=== PATIENT | male | born 1990 | race Caucasian/White ===

== ENCOUNTER 2016-11-16 12:10 | Emergency (ER) | payer OTHER ==
[2016-11-16 12:32] VITALS: BP 124/81
--- NOTE | 2016-11-16 12:49 | UC ---
Throat Pain/Nasal Luis HPI - HPI Summary HPI Summary: complaint of nasal congestion that started 2 days ago productive cough mild sore throat that started today denies headaches, ear pain denies N/V/D took some dayquil on the first day with some relief - History of Current Complaint Chief Complaint: UCRespiratory Stated Complaint: COLD SYMPTOMS Time Seen by Provider: 11/16/16 12:43 Hx Obtained From: Patient - Allergies/Home Medications Allergies/Adverse Reactions: Allergies Allergy/AdvReac Type Severity Reaction Status Date / Time No Known Allergies Allergy Verified 11/16/16 12:31 PMH/Surg Hx/FS Hx/Imm Hx Previously Healthy: Yes - Surgical History Surgical History: None - Family History Known Family History: Positive: Hypertension - MOTHER AND FATHER Negative: Cardiac Disease, Diabetes - Social History Occupation: Employed Full-time Lives: With Family Alcohol Use: Weekly Substance Use Type: None Smoking Status (MU): Former Smoker Type: Cigarettes Length of Time of Smoking/Using Tobacco: 2 yrs When Did the Patient Quit Smoking/Using Tobacco: 2011 - Immunization History Most Recent Influenza Vaccination: last season. Review of Systems Constitutional: Negative Skin: Negative Eyes: Negative ENT: Nasal Discharge Respiratory: Cough Cardiovascular: Negative Gastrointestinal: Negative Genitourinary: Negative Motor: Negative Neurovascular: Negative Musculoskeletal: Negative Neurological: Negative Psychological: Negative All Other Systems Reviewed And Are Negative: Yes Physical Exam Triage Information Reviewed: Yes Appearance: No Pain Distress, Well-Nourished Vital Signs: Initial Vital Signs Temp 98.5 F 11/16/16 12:28 Pulse 75 11/16/16 12:28 Resp 14 11/16/16 12:28 BP 124/81 11/16/16 12:28 Pulse Ox 99 11/16/16 12:28 Vital Signs Reviewed: Yes Eyes: Positive: Conjunctiva Clear ENT: Positive: Pharyngeal erythema, Nasal congestion, Nasal drainage, TMs normal. Negative: Tonsillar swelling, Tonsillar exudate Neck: Positive: No Lymphadenopathy Respiratory: Positive: Lungs clear, Normal breath sounds, No respiratory distress, No accessory muscle use Cardiovascular: Positive: RRR, No Murmur, Pulses Normal Abdomen Description: Positive: Nontender, Soft Bowel Sounds: Positive: Present Musculoskeletal: Positive: No Edema Neurological: Positive: Alert Psychological Exam: Normal Skin Exam: Normal Throat Pain/Nasal Course/Dx - Differential Dx/Diagnosis Differential Diagnosis/HQI/PQRI: Pharyngitis, URI Provider Diagnoses: URI Discharge - Discharge Plan Condition: Stable Disposition: HOME Prescriptions: Oxymetazoline 0.05% NASAL SPR* [Afrin 0.05% NASAL SPRAY*] 1 spray NASAL Q12H #1 btl Patient Education Materials: Upper Respiratory Infection (ED) Forms: *Work Release Referrals: Nate Kumar MD [Primary Care Provider] - Additional Instructions: Increase fluids and rest Take acetaminophen or ibuprofen for fever or pain Please review your discharge instructions. If your symptoms do not improve please call your primary care provider or return to urgent care
== END 2016-11-16 13:02 | disposition home or self-care (01) ==
LOC: UCCORT 12:10
DX: J06.9 Acute upper respiratory infection, unspecified (principal); Z87.891 Personal history of nicotine dependence
CPT/HCPCS: 99212; G0463

== ENCOUNTER 2018-01-22 08:29 | Emergency (ER) | payer BC, OTHER ==
[2018-01-22 08:48] VITALS: BP 126/81
--- NOTE | 2018-01-22 08:49 | UC ---
Throat Pain/Nasal Luis HPI - HPI Summary HPI Summary: 27-year-old otherwise healthy male presents with sore throat that began this morning. He states that he had headache last evening. Today he also had fever to 100.1. He also reports an anal fissure with bright red blood with bowel movement this morning. He states he has a history of these that are associated with constipation. He also reports some constipation. He has no abdominal pain , oral ulcerations. There is no personal or family history for ulcerative colitis or Crohn's disease. - History of Current Complaint Stated Complaint: SORE THROAT Time Seen by Provider: 01/22/18 08:41 Hx Obtained From: Patient - Allergies/Home Medications Allergies/Adverse Reactions: Allergies Allergy/AdvReac Type Severity Reaction Status Date / Time No Known Allergies Allergy Verified 01/22/18 08:47 PMH/Surg Hx/FS Hx/Imm Hx GI/ History: Other Other GI/ History: anal fissures. Denies Crohn's disease or colitis - Surgical History Surgical History: None - Family History Known Family History: Positive: Hypertension - MOTHER AND FATHER Negative: Cardiac Disease, Diabetes - Social History Occupation: Employed Full-time - Works in the long term Alcohol Use: Weekly Substance Use Type: None Smoking Status (MU): Former Smoker Type: Cigarettes Length of Time of Smoking/Using Tobacco: 2 yrs When Did the Patient Quit Smoking/Using Tobacco: 2011 - Immunization History Most Recent Influenza Vaccination: last season. Review of Systems Constitutional: Fever Skin: Negative ENT: Sore Throat, Other - Denies ear pain, sinus congestion or sinus discomfort Respiratory: Negative Cardiovascular: Negative Gastrointestinal: Other - Anal fissure All Other Systems Reviewed And Are Negative: Yes Physical Exam Triage Information Reviewed: Yes Appearance: Well-Appearing, No Pain Distress Vital Signs Reviewed: Yes Eye Exam: Normal Eyes: Positive: Conjunctiva Clear ENT: Positive: Pharyngeal erythema, TMs normal, Tonsillar exudate. Negative: Nasal drainage, Tonsillar swelling Neck exam: Normal Neck: Positive: Nontender, No Lymphadenopathy. Negative: Nuchal Rigidity Respiratory: Positive: Lungs clear Cardiovascular: Positive: RRR Abdomen Description: Positive: Nontender, No Organomegaly Male Genital Exam: Positive: Other - No active rectal bleeding. Normal tone. No hemorrhoids. No discernible fissure at this point. Musculoskeletal Exam: Normal Neurological Exam: Normal Neurological: Positive: Alert, Muscle Tone Normal Skin Exam: Normal Throat Pain/Nasal Course/Dx - Course Course Of Treatment: Rapid strep is negative. Pharyngeal erythema and exudate. Likely viral. Also we'll treat presumptively has anal fissure. Add steroids and Anusol suppository. - Differential Dx/Diagnosis Differential Diagnosis/HQI/PQRI: Other - Strep tonsillitis, viral pharyngitis/ tonsillitis; ulcerative colitis/Crohn's, anal fissure Provider Diagnoses: Acute pharyngitis. Acute anal fissure Discharge - Sign-Out/Discharge Documenting (check all that apply): Patient Departure - Discharge Plan Condition: Improved Disposition: HOME Prescriptions: Dexamethasone TAB* [Decadron TAB*] 8 mg PO DAILY #4 tab Hydrocortisone SUPP* [Anusol HC Supp*] 25 mg [place] BID #6 supp Patient Education Materials: Pharyngitis (ED), Anal Fissure (ED) Forms: *Work Release Referrals: Nate Kumar MD [Primary Care Provider] - Additional Instructions: Drink plenty of fluids. Tylenol, ibuprofen as needed for fever. Mixed MiraLAX interior diet whenever you feel constipated. This is [id number]. Return with unable to keep down fluids, high fevers, worsening, new symptoms or other concerns. Call your doctor today to schedule follow-up. - Billing Disposition and Condition Condition: IMPROVED Disposition: Home
[2018-01-22] MEDS ORDERED: Ibuprofen ADULT LIQ* 600 MG/30 ML UDC PO ONE (08:59)
[2018-01-22] MEDS ORDERED: Ibuprofen PED LIQ 100 MG/5 ML UDC PO ONE (08:59)
== END 2018-01-22 09:14 | disposition home or self-care (01) ==
LOC: UCCORT 08:29
DX: J02.9 Acute pharyngitis, unspecified (principal); K60.0 Acute anal fissure; Z87.891 Personal history of nicotine dependence
CPT/HCPCS: 87651; 99212; G0463

== ENCOUNTER 2018-03-22 10:12 | Emergency (ER) | payer BC ==
[2018-03-22 10:28] VITALS: BP 118/75
--- NOTE | 2018-03-22 10:50 | UC ---
Abdominal Pain Male HPI - HPI Summary HPI Summary: 27 year old male with GI comlpaint. "I've got some nausea and diarrhea." Fever ( tmax 101 two days ago), nausea without vomiting, "feels like everything is kind of gassy. I'm hungry, but I haven't been able to eat in two days.", and four to five episodes of diarrhea daily for two days. Has been able to tolerate water and alta abilio. No close contacts with similar symptoms. No recent antibiotics or travel. [ End ] - History of Current Complaint Chief Complaint: UCGI Stated Complaint: NAUSEA, DIARRHEA Time Seen by Provider: 03/22/18 10:47 Hx Obtained From: Patient Onset/Duration: Gradual Onset Timing: Constant Pain Intensity: 0 Aggravating Factor(s): Food Alleviating Factor(s): Nothing Associated Signs And Symptoms: Positive: Diarrhea. Negative: Blood in Stool - Allergies/Home Medications Allergies/Adverse Reactions: Allergies Allergy/AdvReac Type Severity Reaction Status Date / Time No Known Allergies Allergy Verified 03/22/18 10:23 Home Medications: Home Medications Bismuth Subsalicylate [Pepto-Bismol Max Strength] 30 ml PO Q6H PRN 03/22/18 [ History Confirmed 03/22/18] Calcium Carbonate CHEW TAB* [Tums*] 1,000 mg PO Q4H PRN 03/22/18 [History Confirmed 03/22/18] Ibuprofen TAB* [Advil TAB*] 400 - 600 mg PO Q6H PRN 03/22/18 [History Confirmed 03/22/18] PMH/Surg Hx/FS Hx/Imm Hx Previously Healthy: Yes - Surgical History Surgical History: None - Family History Known Family History: Positive: Hypertension - MOTHER AND FATHER Negative: Cardiac Disease, Diabetes - Social History Occupation: Employed Full-time - [place] Alcohol Use: Weekly Substance Use Type: None Smoking Status (MU): Former Smoker Type: Cigarettes Length of Time of Smoking/Using Tobacco: 2 yrs When Did the Patient Quit Smoking/Using Tobacco: 2011 - Immunization History Most Recent Influenza Vaccination: last season. Review of Systems Constitutional: Fatigue Gastrointestinal: Diarrhea, Nausea Is Patient Immunocompromised?: No All Other Systems Reviewed And Are Negative: Yes Physical Exam Triage Information Reviewed: Yes Appearance: Well-Appearing, No Pain Distress, Well-Nourished Vital Signs: Initial Vital Signs Temp 98.3 F 10/13/18 10:21 Pulse 70 03/22/18 10:21 Resp 16 03/22/18 10:21 BP 118/75 03/22/18 10:21 Pulse Ox 99 03/22/18 10:21 Vital Signs Reviewed: Yes Eye Exam: Normal ENT Exam: Normal Dental Exam: Normal Neck exam: Normal Neck: Positive: 1 Respiratory Exam: Normal Cardiovascular Exam: Normal Abdominal Exam: Normal Abdomen Description: Positive: Nontender, Soft. Negative: No Organomegaly, Bruit, CVA Tenderness (R), CVA Tenderness (L), Distended, Guarding, Peritoneal Signs Musculoskeletal Exam: Normal Neurological Exam: Normal Psychological Exam: Normal Skin Exam: Normal Abd Pain Male Course/Dx - Course Course Of Treatment: Symptoms at this time indicate gastroenteritis. No obvious indication of diverticulitis and patient does not describe significant left lower quadrant abdominal pain. We did discuss the signs and symptoms of diverticulitis and if he develops these to seek medical attention. - Differential Dx/Clinical Impression Provider Diagnoses: gastroenteritis Discharge - Sign-Out/Discharge Documenting (check all that apply): Patient Departure All imaging exams completed and their final reports reviewed: No Studies - Discharge Plan Condition: Good Disposition: HOME Prescriptions: Ondansetron [Zofran Odt] 4 mg PO Q6HR PRN #15 tab.rapdis PRN Reason: Nausea Patient Education Materials: Gastroenteritis (ED) Forms: *Work Release Referrals: Nate Kumar MD [Primary Care Provider] - 4 Days - Billing Disposition and Condition Condition: GOOD Disposition: Home
== END 2018-03-22 11:16 | disposition home or self-care (01) ==
LOC: UCCORT 10:12
DX: K52.9 Noninfective gastroenteritis and colitis, unspecified (principal)
CPT/HCPCS: 99212; G0463

== ENCOUNTER 2018-10-27 10:18 | Emergency (ER) | payer BC ==
[2018-10-27 10:37] VITALS: BP 118/70
[2018-10-27] MEDS ORDERED: Tetan/Diph/Pertus SYR(Tdap)* 0.5 ML SYR(BOOSTRIX) use SYR IM ONE (11:00)
--- NOTE | 2018-10-27 11:00 | UC ---
General HPI - HPI Summary HPI Summary: around 9am, pt stepped on a small finishing nail inside his home. it went through his L slip on shoe and poked him in the foot. he immediately cleaned the site. he comes in for a tetanus shot. he denies any FB sensation and the nail remained whole when it came out. - History of Current Complaint Chief Complaint: UCLowerExtremity Stated Complaint: LT FOOT INJURY-STEPPED ON NAIL Time Seen by Provider: 10/27/18 10:54 Hx Obtained From: Patient Onset/Duration: Sudden Onset Pain Intensity: 0 Associated Signs & Symptoms: Negative: Edema, Fever - Allergy/Home Medications Allergies/Adverse Reactions: Allergies Allergy/AdvReac Type Severity Reaction Status Date / Time No Known Allergies Allergy Verified 10/27/18 10:34 PMH/Surg Hx/FS Hx/Imm Hx Previously Healthy: Yes - Surgical History Surgical History: None - Family History Known Family History: Positive: Hypertension - MOTHER AND FATHER Negative: Cardiac Disease, Diabetes - Social History Alcohol Use: Occasionally Substance Use Type: None Smoking Status (MU): Former Smoker Type: Cigarettes Length of Time of Smoking/Using Tobacco: 2 yrs When Did the Patient Quit Smoking/Using Tobacco: 2011 - Immunization History Most Recent Influenza Vaccination: last season. Hx Tetanus, Diphtheria Vaccination: No Review of Systems All Other Systems Reviewed And Are Negative: No Constitutional: Negative: Fever Skin: Negative: Rash Musculoskeletal: Negative: Arthralgia, Edema Physical Exam Triage Information Reviewed: Yes Appearance: Well-Appearing Vital Signs: Initial Vital Signs Temp 98.0 F 10/27/18 10:34 Pulse 62 10/27/18 10:34 Resp 14 10/27/18 10:34 BP 118/70 10/27/18 10:34 Pulse Ox 99 10/27/18 10:34 Vital Signs Reviewed: Yes Respiratory: Positive: No respiratory distress Cardiovascular: Positive: RRR Musculoskeletal: Positive: Other: - L foot: tiny pink spot from PW on lateral side of plantar foot. no erythema, swelling or tenderness. Pt denies FB sensation with palpations. foot has full s/v/m function. Neurological: Positive: Alert Psychological: Positive: Age Appropriate Behavior Skin Exam: Normal Skin: Negative: Rashes Course/Dx - Differential Dx - Multi-Symptom Differential Diagnoses: Other - Tiny PW L foot. No s/s's of infection or FB. Will cover with Keflex to prevent infection. Pt advised if develops an infection on keflex will need recheck immediately and probable cipro to cover pseudomonas - Diagnoses Provider Diagnosis: Puncture wound of foot, left Discharge - Sign-Out/Discharge Documenting (check all that apply): Patient Departure All imaging exams completed and their final reports reviewed: No Studies - Discharge Plan Condition: Stable Disposition: HOME Prescriptions: Cephalexin CAP* [Keflex CAP*] 500 mg PO TID 7 Days #21 cap Patient Education Materials: Puncture Wound (DC) Referrals: Nate Kumar MD [Primary Care Provider] - 4 Days - Billing Disposition and Condition Condition: STABLE Disposition: Home
== END 2018-10-27 11:10 | disposition home or self-care (01) ==
LOC: UCCORT 10:18
DX: S91.332A Puncture wound without foreign body, left foot, initial encounter (principal); Z87.891 Personal history of nicotine dependence; W45.0XXA Nail entering through skin, initial encounter; Y92.9 Unspecified place or not applicable
CPT/HCPCS: 90471; 90715; 99212; G0463

== ENCOUNTER 2019-09-27 17:21 | Emergency (ER) | payer BC ==
[2019-09-27 17:32] VITALS: BP 140/83
[2019-09-27] MEDS ORDERED: Tetracaine 0.5% OPTH.SOL 4 ML* 1 DROP BTL RIGHT EYE ONE (18:06)
[2019-09-27] MEDS ORDERED: Eye Irrigation Solution 30 ML BOTTLE BOTH EYES ONE (18:06)
[2019-09-27] MEDS ORDERED: Fluorescein Sodium TOPICAL* 1 MG TEST STRIP OPHTHALMIC ONE (18:09)
[2019-09-27] MEDS ORDERED: Erythromycin OPTH OINT* APPLIC OINT RIGHT EYE ONE (18:35)
--- NOTE | 2019-09-27 18:35 | ED ---
Throat Pain/Nasal Congestion - HPI Summary HPI Summary: 28 yo c/o right eye pain after cutting down tree and felt something in right eye and is not painful after blinking for an hour or so, denies blurry vision but c/o redness and clear d/c - History of Current Complaint Chief Complaint: UCEye Time Seen by Provider: 09/27/19 18:05 Hx Obtained From: Patient Hx From Patient Unobtainable Due To: Dementia Onset/Duration: Sudden Onset Severity: Mild - Epiglottits Risk Factors Epiglottis Risk Factors: Negative - Allergies/Home Medications Allergies/Adverse Reactions: Allergies Allergy/AdvReac Type Severity Reaction Status Date / Time No Known Allergies Allergy Verified 09/27/19 17:28 Home Medications: Home Medications Ciprofloxacin 0.3% OPTH.RUDI* [Cipro 0.3% Opth*] 2 drop .SEE ORDER QID 7 Days #1 btl 09/27/19 [Rx] PMH/Surg Hx/FS Hx/Imm Hx Previously Healthy: Yes Endocrine/Hematology History: Denies: Hx Diabetes Respiratory History: Reports: Hx Asthma - childhood Infectious Disease History: No Infectious Disease History: Denies: Traveled Outside the [place] in Last 30 Days - Family History Known Family History: Positive: Hypertension - MOTHER AND FATHER, Non- Contributory Negative: Cardiac Disease, Diabetes - Social History Alcohol Use: Occasionally Substance Use Type: Reports: None Smoking Status (MU): Former Smoker Type: Cigarettes Length of Time of Smoking/Using Tobacco: 2 yrs Review of Systems Constitutional: Negative Positive: Drainage, Erythema. Negative: Photophobia, Blurred Vision, Diplopia ENT: Negative Cardiovascular: Negative Respiratory: Negative Gastrointestinal: Negative Genitourinary: Negative Musculoskeletal: Negative Skin: Negative Neurological/Mental Status: Negative Psychological: Normal All Other Systems Reviewed And Are Negative: Yes Physical Exam - Summary Physical Exam Summary: Vital Signs Reviewed: Yes Appearance: Positive: No Pain Distress Skin: Positive: Warm Head/Face: Positive: Normal Head/Face Inspection Eyes: Positive: small fluorescein stain uptake seen in between 6- 7O'clock position, about 2-3mm, NO FB visualized on cornea or eyelid inversion ENT: Positive: Normal ENT inspection Dental: Negative: Cervical Lymphadenopathy Neck: Positive: Supple Respiratory/Lung Sounds: Positive: Clear to Auscultation Cardiovascular: Positive: Normal, RRR, S1, S2 Abdomen Description: Positive: Nontender Musculoskeletal: Positive: Normal Neurological: Positive: Normal Psychiatric: Positive: Normal Vital Signs On Initial Exam: Initial Vitals Temp Pulse Resp BP Pulse Ox 37.0 C 82 16 140/83 95 09/27/19 17:28 09/27/19 17:28 09/27/19 17:28 09/27/19 17:28 09/27/19 17:28 Diagnostics - Vital Signs Vital Signs Temp Pulse Resp BP Pulse Ox 09/27/19 17:28 37.0 C 82 16 140/83 95 - Laboratory Lab Statement: Any lab studies that have been ordered have been reviewed, and results considered in the medical decision making process. EENT Course/Dx - Differential Diagnoses Differential Diagnoses: Abrasion - Diagnoses Provider Diagnoses: Corneal abrasion, right - Critical Care Time Critical Care Statement: Critical care time is provided exclusive of any time spent performing procedures. Discharge ED - Sign-Out/Discharge Documenting (check all that apply): Patient Departure All imaging exams completed and their final reports reviewed: No Studies - Discharge Plan Condition: Stable Disposition: HOME Prescriptions: Ciprofloxacin 0.3% OPTH.RUDI* [Cipro 0.3% Opth*] 2 drop .SEE ORDER QID 7 Days #1 btl Patient Education Materials: Corneal Abrasion (ED) Referrals: Dixon Urias MD [Primary Care Provider] - Additional Instructions: please go to Ed if pain worsens in spite of abx eye drops - Billing Disposition and Condition Condition: STABLE Disposition: Home
[2019-09-27] MEDS ORDERED: Erythromycin TOPICAL GEL* 30 GM TUBE TOPICAL SCH (21:00)
== END 2019-09-27 18:53 | disposition home or self-care (01) ==
LOC: UCCORT 17:21
DX: S05.01XA Injury of conjunctiva and corneal abrasion without foreign body, right eye, initial encounter (principal); X58.XXXA Exposure to other specified factors, initial encounter; Y93.89 Activity, other specified; Y92.9 Unspecified place or not applicable; F03.90 Unspecified dementia, unspecified severity, without behavioral disturbance, psychotic disturbance, mood disturbance, and anxiety; Z87.891 Personal history of nicotine dependence
CPT/HCPCS: 65220; 99212; A9270-GY; G0463